=== PATIENT | female | born 1965 | race Caucasian/White ===

== ENCOUNTER 2016-09-08 22:24 | Inpatient (IN) | payer OTHER ==
[~2016-09-08] VITALS: Ht 165.1 cm; Wt 63.0 kg
--- NOTE | ~2016-09-08 | EKG ---
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 : 1965 Requested By: Delmy Byrd Order Number: [id number] MD: Doc Parsons Measurements Intervals [place] Rate: 106 P: 74 MT: 150 QRS: 76 QRSD: 104 T: -13 QT: 348 QTc: 463 Interpretive Statements Sinus tachycardia Borderline repolarization abnormality Compared to ECG 07/31/2001 12:35:20 Sinus rhythm no longer present Electronically Signed On 09-10-2016 12:43:00 CDT by Doc Parsons [email or web address] <ELECTRONICALLY SIGNED> By: Doc Parsons MD, [facility] 09/10/16 1243 [id number] Doc Parsons MD, [facility] /EPI
--- NOTE | ~2016-09-08 | H ---
[facility] [place] [address] [place] [address] HISTORY AND PHYSICAL Name: VANDANA COLEMAN Room #: 211-P [facility] IN M.R.#: [id number] Admission: 09/09/16 Attend Phys: Gael Vargas MD Discharge: 09/10/16 Date of : 69 Report #: [id number] THIS REPORT FOR: //name// CC: FAM physician/PCP Gael Vargas DATE OF SERVICE: 09/09/2016 ATTENDING PHYSICIAN: Gael Vargas MD. PRIMARY CARE PHYSICIAN: None. CHIEF COMPLAINT: Chest pain and passing out. HISTORY OF PRESENT ILLNESS: The patient is a 50-year-old female who was feeling fine during the day. Yesterday evening around 9 p.m., she reports she had a sudden onset of chest pain. This lasted about 10 seconds and the next thing she knew she woke up on the floor after feeling very dizzy. Her son was in the next room and heard her fall. Apparently, she lost consciousness for about 5 seconds, afterwards she woke up feeling very hot and started sweating and this went on for about another 10 minutes. She denied any further chest pain after she passed out. She has never had any similar symptoms or episodes. She did fall on the right side of her face, but denies any injury. She did have a few brief episodes of chest pain earlier this week while she was at work, walking, but this pain tonight was more severe and sharp in nature. She did check her blood pressure afterwards at home and her systolic blood pressure was 90. She says she normally runs around there and has low blood pressure. She denies any history of coronary artery disease, but reports that it does run in her family. Since arrival, she has not had any further episodes and has been resting comfortably. PAST MEDICAL HISTORY: Chronic back pain. PAST SURGICAL HISTORY: Rotator cuff repair. ALLERGIES: None. HOME MEDICATIONS: Hydrocodone 5/325 p.r.n., she says she really only needs to take it when she is at work. SOCIAL HISTORY: The patient is a smoker. She currently smokes up to 1 pack of cigarettes per day. She has been smoking since the age of 17. She does smoke marijuana occasionally on a monthly basis. No alcohol use. She lives at home with her spouse and her son. 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 FAMILY HISTORY: Her mother is alive and had a history of heart disease with a [facility] [address] [place] [address] HISTORY AND PHYSICAL Name: VANDANA COLEMAN Room #: 211-P [facility] IN [facility].#: [id number] Admission: 09/09/16 Attend Phys: Gael Vargas MD Discharge: 09/10/16 Date of : 69 Report #: [id number] quadruple bypass and her grandmother from an IA at the age of 63. Her father in his sleep at the age of 60 and they did not know if it was a cardiac event. He was also a diabetic. REVIEW OF SYSTEMS: The patient did admit that the hydrocodone she uses for her back pain is not her's. She has never been prescribed this medication, but she does take it regularly. All other 12-point review of systems was reviewed with the patient, otherwise negative unless stated in the HPI. PHYSICAL EXAMINATION: GENERAL: The patient is an alert female, in no acute distress. VITAL SIGNS: Temperature is 37.3, heart rate 107, respirations 20, blood pressure is 120/87, oxygen 97% on room air. HEENT: PERRLA. Sclerae is nonicteric. Oral mucosa is pink and moist. NECK: Supple, but she does have some point tenderness on the right side of her posterior neck. She does have full range of motion. CARDIOVASCULAR: Normal S1, S2. No murmurs, rubs or gallops. RESPIRATORY: Breath sounds are clear bilaterally. No wheezing or rhonchi. Breathing is nonlabored. ABDOMEN: Soft, nontender, nondistended with positive bowel sounds. VASCULAR: No edema noted. Pedal pulses are 2+. NEUROLOGIC: The patient is alert and oriented x 3. Speech is clear. She is moving all extremities equally. No focal weakness noted. SKIN: Intact. No rashes or lesions. LABORATORY AND DIAGNOSTICS: WBC is 15, hemoglobin is 14.3 and platelets 347. D-dimer is 0.47. Sodium 136, potassium is 3.4, BUN 8, creatinine 1.2, glucose is 90 and troponins negative. UA shows positive nitrite, 1+ leukocyte esterase, few wbcs and moderate bacteria. EKG showing sinus tachycardia, rate of 106 and chest x-ray shows no acute process. ASSESSMENT AND PLAN: 1. Syncope with fall. Her initial workup in the ER was unremarkable. We will continue to monitor on telemetry and check orthostatics in the morning. We will gently hydrate. 2. Chest pain. Her initial troponin was negative. She denies any further chest pain. Check 2 more sets of troponins. 3. Hypokalemia. This will be replaced. Follow labs. 4. Urinary tract infection. The patient denies any dysuria. This really does not explain her syncope, but we will go ahead and treat her with Rocephin and follow urine culture. 5. Neck pain. This is acute on chronic after the fall. We will go ahead and check a CT of the cervical spine because she did hit her head on the fall. Continue with oral pain medications. 6. Deep venous thrombosis prophylaxis. Place sequential compression devices. [facility] [address] [place] [address] HISTORY AND PHYSICAL Name: VANDANA COLEMAN Room #: 211-P [facility] IN M.R.#: [id number] Admission: 09/09/16 Attend Phys: Gael Vargas MD Discharge: 09/10/16 Date of : 69 Report #: [id number] We will continue to follow the patient closely throughout the hospitalization and make changes based on clinical status. <ELECTRONICALLY SIGNED> By: TEETEE Blackman 09/15/16 0659 [id number] TEETEE Blackman /nt
[2016-09-08 22:26] VITALS: BP 120/87
[2016-09-08] MEDS ORDERED: HYDROCODONE-AP1 EAC6 PO (22:30)
[2016-09-08 22:56] LABS: ABSOLUTE NEUTROPHILS 11.2 thou/uL (1.4-8.2); EOSINOPHILS 0.2 % (0.0-3.0); HEMATOCRIT 41.5 % (37.0-47.0); HEMOGLOBIN 14.3 gm/dL (12.0-15.0); LYMPHOCYTES 14.1 % (24.0-44.0); MCH 30.8 pg (26.0-34.0); MCHC 34.6 g/dL (28.0-37.0); MCV 89.2 fL (80.0-100.0); MONOCYTES 9.8 % (1.0-8.0); PLATELET COUNT 347 thou/uL (150-400); POLYS 74.9 % (36.0-66.0); RBC 4.66 mil/uL (4.20-5.00)
[2016-09-08 22:57] LABS: MANUAL DIFF NO
[2016-09-08 23:05] LABS: ANION GAP 9 mmol/L (7-16); BUN 8 mg/dL (7-18); CALCIUM 8.7 mg/dL (8.5-10.1); CHLORIDE 100 mmol/L (98-107); CO2 27 mmol/L (21-32); CREATININE 1.2 mg/dL (0.6-1.0); GLUCOSE 90 mg/dL (74-106); POTASSIUM 3.4 mmol/L (3.5-5.1); SODIUM 136 mmol/L (136-145)
[2016-09-08 23:12] LABS: TROPONIN-I < 0.04 ng/mL (<0.04-0.07)
[2016-09-09] VITALS (11 sets, daily range): BP systolic 103–122; BP diastolic 68–83
[2016-09-09 03:02] LABS: URINE BILIRUBIN NEGATIVE (Negative); URINE BLOOD 1+ (Negative); URINE COLOR YELLOW; URINE GLUCOSE-RANDOM* NEGATIVE (Negative); URINE KETONES NEGATIVE (Negative); URINE LEUKOCYTES-REFLEX 1+ (Negative); URINE PROTEIN (DIPSTICK) NEGATIVE (Negative); URINE SPECIFIC GRAVITY <= 1.005 (1.003-1.035); URINE UROBILINOGEN 0.2 E.U./dl (0.2-1.0)
[2016-09-09 03:12] LABS: CASTS None Seen /LPF (None Seen); SQUAMOUS 0-3 Few /LPF (0-3); URINE RBC 0-2 Rare /HPF (0-2); URINE WBC-REFLEX 6-15 Few /HPF (0-5)
[2016-09-09 03:13] LABS: CRYSTALS None Seen /LPF (None Seen)
[2016-09-09 05:33] LABS: CHOLESTEROL 204 mg/dL (<200); HDL CHOLESTEROL 57 mg/dL (>40); LDL CHOLESTEROL 133 mg/dL (<100); TC:HDL 3.6 Ratio (Not establshd); TRIGLYCERIDE 72 mg/dL (<150); TROPONIN-I < 0.04 ng/mL (<0.04-0.07); VLDL 14 mg/dL (<40)
[2016-09-09 10:50] LABS: ANION GAP 9 mmol/L (7-16); BUN 6 mg/dL (7-18); CALCIUM 8.3 mg/dL (8.5-10.1); CHLORIDE 105 mmol/L (98-107); CO2 25 mmol/L (21-32); CREATININE 0.9 mg/dL (0.6-1.0); GLUCOSE 95 mg/dL (74-106); POTASSIUM 4.1 mmol/L (3.5-5.1); SODIUM 139 mmol/L (136-145); TROPONIN-I < 0.04 ng/mL (<0.04-0.07)
[2016-09-10 04:00] VITALS: BP 113/72
[2016-09-10 07:25] VITALS: BP 108/71
[2016-09-10 11:40] VITALS: BP 141/83
[2016-09-10] MEDS ORDERED: ZOCOR20 MG PO (13:49)
[2016-09-10 13:52] VITALS: BP 108/71
[2016-09-10 15:39] VITALS: BP 108/71
== END 2016-09-10 14:25 | disposition home or self-care (01) | DRG 871 ==
LOC: ER 22:24 → EROBS 09-09 00:12 → 2N 09-09 00:36
PROVIDERS: Emergency Medicine; Nurse Practitioner Acute Care
DX: A41.9 Sepsis, unspecified organism (principal); N17.0 Acute kidney failure with tubular necrosis; N39.0 Urinary tract infection, site not specified; R07.9 Chest pain, unspecified; R55 Syncope and collapse; F12.90 Cannabis use, unspecified, uncomplicated; G89.29 Other chronic pain; M54.9 Dorsalgia, unspecified; E87.6 Hypokalemia; F17.210 Nicotine dependence, cigarettes, uncomplicated; E78.5 Hyperlipidemia, unspecified; M54.2 Cervicalgia; Z82.49 Family history of ischemic heart disease and other diseases of the circulatory system; Z83.3 Family history of diabetes mellitus
CPT/HCPCS: 10081